=== PATIENT | male | born 1965 | race Caucasian/White ===

== ENCOUNTER → 2019-11-25 | Outpatient (CLI) | payer SELFPAY ==
[2019-11-25 08:36] LABS: POTASSIUM 4.1 mmol/L (3.5-5.1)
[2019-11-25 08:37] LABS: CALCIUM 8.9 mg/dL (8.3-10.5)
[2019-11-25 08:39] LABS: TOTAL PROTEIN 6.4 g/dL (6.4-8.3)
[2019-11-25 08:40] LABS: TOTAL BILIRUBIN 0.5 mg/dL (0.2-1.2)
[2019-11-25 10:33] LABS: URINE APPEARANCE CLEAR; URINE BILIRUBIN NEGATIVE (NEGATIVE); URINE BLOOD NEGATIVE (NEGATIVE); URINE COLOR YELLOW; URINE GLUCOSE NEGATIVE (NEGATIVE); URINE KETONE NEGATIVE (NEGATIVE); URINE LEUKOCYTE ESTERASE NEGATIVE (NEGATIVE); URINE NITRATE NEGATIVE (NEGATIVE); URINE PROTEIN(semi-quant) NEGATIVE (NEGATIVE); URINE UROBILINOGEN NORMAL (NORMAL); URINE WBC 0-1 /hpf (0-3)
== END ==
LOC: LAB 08:11
PROVIDERS: Internal Medicine
DX: Z00.00 Encounter for general adult medical examination without abnormal findings (principal); Z12.5 Encounter for screening for malignant neoplasm of prostate